=== PATIENT | female | born 1970 | race Caucasian/White ===

== ENCOUNTER → 2016-08-09 | Outpatient (CLI) | payer BC ==
[~2016-08-09] MED LIST: AGM500T PO; BENZ-22 PO; PRED20TA PO
[2016-08-09 11:28] VITALS: BP 152/84
--- NOTE | 2016-08-09 11:28 | Urgent Care T Sheet Gen (E) ---
Intake General Temperature (Fahrenheit): 98.5 Pulse: 111 Blood Pressure Systolic: 152 Blood Pressure Diastolic: 84 Respirations: 20 SPO2: 98 Description of Symptoms Patient presents with a cough since before Rohit. Patient has been treated twice with a Z-Pack however hasn't had complete resolution of symptoms. Today complains of nasal congestion, chest congestion, cough and shortness of breath. No OTC meds. States her cough is constant, dry and annoying. Respiratory Constitutional Symptoms: No syptoms reported EENTM: Nose Congestion Throat pain Respiratory: Cough Short of breathNo Wheezing Cardiovascular: No symptoms reported Gastrointestinal/Abdominal: No symptoms reported All Other Systems Reviewed Remaining Systems: All other systems reviewed with negative findings Physical Exam Physical Exam General Appearance: WD/WN No apparent distress Eyes, Ears, Nose, Throat Ex: TMs normal Pharyngeal erythema (irritated with cobblestone appearance) Other (red, swollen nasal turbinates, R worse than L, with clear, thick nasal drainage.) Neck Exam: SuppleNo Lymphadenopathy Respiratory Exam: RhonchiNo Wheezes Cardiovascular Exam: No murmur Tachycardia Departure Urgent Care Impression Impression: Primary Impression: Sinusitis Qualified Code: J01.00 - Acute maxillary sinusitis, unspecified Additional Impressions: Cough Elevated blood-pressure reading without diagnosis of hypertension Departure Disposition: HOME OR SELF-CARE Condition: Stable Referrals: Primo Hutchison MD (PCP) Additional Instructions: For being on two rounds of a Z-Pack, her lungs still sound very congested. She coughed throughout exam and it was more dry, irritative than anything. I prescribed Augmentin. Hopeful this will break up the sinus and chest congestion. I have also prescribed Prednisone for lung inflammation/irritated. Tessalon pearls for cough suppression. Rest. Fluids Return as needed. Patient's BP was elevated and she hasn't taken any meds. Recheck either here or with school nurse. If it continues to remain elevated, will need to f/u with Dr Hutchison Patient understands DC instructions. All questions were answered. Scripts Prednisone 20 Mg [id number] Mg PO DAILY #6 TAB Prov:GARTH HUMPHREYS 08/09/16 Benzonatate (Tessalon Perles)100 Mg [id number] Mg PO TID PRN COUGH #20 CAP Prov:GARTH HUMPHREYS 08/09/16 Amoxicillin/Clavulanate Potassium (Augmentin 500mg/125mg)1 Each Tablet1 Each PO BID Infection #20 TAB Ref 0 Prov:GARTH HUMPHREYS 08/09/16 End of report . GARTH HUMPHREYS Aug 09, 2016 11:28
== END ==
LOC: MHUC 11:02
PROVIDERS: ATTEND Physician Assistant
DX: J01.00 Acute maxillary sinusitis, unspecified (principal); R05 Cough; R03.0 Elevated blood-pressure reading, without diagnosis of hypertension
CPT/HCPCS: 99213